=== PATIENT | female | born 1945 | race Caucasian/White ===

== ENCOUNTER 2018-07-13 15:37 | Inpatient (IN) | payer MEDICARE, OTHER ==
[2018-07-13] MEDS ORDERED: ROPIVACAINE 0.2% 20 ML VIAL (17:43)
[2018-07-13] MEDS ORDERED: PROPOFOL 20 ML (17:43)
[2018-07-13] MEDS ORDERED: MIDAZOLAM 1 MG/ML 2 ML INJ ×2 (17:43→18:12)
[2018-07-13] MEDS ORDERED: ROPIVACAINE 0.5 % 30 ML VIAL (17:43)
[2018-07-13] MEDS ORDERED: ONDANSETRON 4 MG INJ (17:43)
[2018-07-13] MEDS ORDERED: METOCLOPRAMIDE 10 MG INJ (17:44)
[2018-07-13] MEDS ORDERED: MEPERIDINE 25 MG INJ IV (18:00)
[2018-07-13] MEDS ORDERED: ONDANSETRON 4 MG INJ IV (18:00)
[2018-07-13] MEDS ORDERED: HYDROmorphONE 1 MG/5 ML IV SYRINGE IV ×3 (18:00)
[2018-07-13] MEDS ORDERED: DIPHENHYDRAMINE 50 MG INJ IV (18:00)
[2018-07-13] MEDS ORDERED: FENTAnyl 50 MCG/ML VIAL (18:27)
[2018-07-13] MEDS ORDERED: PIPER-TAZO 3.375 GM IV (PMX) 100 ML (18:36)
[2018-07-13] MEDS ORDERED: CEFAZOLIN 1 GM INJ (18:53)
[2018-07-13] MEDS ORDERED: CEFAZOLIN 1 GM INJ IV (19:00)
[2018-07-13] MEDS ORDERED: DIPHENHYDRAMINE 25 MG CAP PO (19:00)
[2018-07-13] MEDS ORDERED: KETOROLAC 30 MG INJ (20:24)
[2018-07-13] MEDS ORDERED: BACITRACIN/POLYMYXIN 28.35 GM OINT TOP (20:24)
[2018-07-13] MEDS ORDERED: FENTAnyl 50 MCG/ML VIAL IV ×6 (21:00→21:30)
[2018-07-13 21:35] LABS: HEMATOCRIT 36.1 % (37.0-47.0); HEMOGLOBIN 11.6 g/dl (12.0-16.0)
[2018-07-13] MEDS ORDERED: PIPER-TAZO 2.25 GM (PMX) 50 ML IVPB (22:00)
[2018-07-13] MEDS: GABAPENTIN 300 MG CAP PO (23:08)
[2018-07-13] MEDS: oxyCODONE (CR) 10 MG TAB [oxyCONTIN] PO (23:08)
[2018-07-14 05:25] LABS: ADD MAN DIFF? NO
[2018-07-14 05:27] LABS: WHITE BLOOD COUNT 8.9 10^3/ul (4.8-10.8)
[2018-07-14 05:27] LABS: BASOPHIL # 0.1 10^3/ul (0.0-0.1); BASOPHILS % 0.6 % (0.0-2.0); EOSINOPHILS # 0.1 10^3/ul (0.0-0.5); EOSINOPHILS % 1.2 % (0.0-7.0); HEMATOCRIT 35.8 % (37.0-47.0); HEMOGLOBIN 11.1 g/dl (12.0-16.0); LYMPHOCYTES # 1.2 10^3/ul (0.8-2.9); LYMPHOCYTES % 13.9 % (15.0-51.0); MEAN CORPUSCULAR HEMOGLOBIN 27.9 pg (29.0-33.0); MEAN CORPUSCULAR VOLUME 89.9 fl (82.0-101.0); MEAN PLATELET VOLUME 10.3 fl (7.4-10.4); MONOCYTE # 0.8 10^3/ul (0.3-0.9); MONOCYTES % 8.5 % (0.0-11.0); NEUTROPHIL # 6.7 10^3/ul (1.6-7.5); NEUTROPHILS % 75.5 % (39.0-77.0); PLATELET COUNT 220 10^3/UL (140-415); RED BLOOD COUNT 3.98 10^6/ul (4.20-5.40); RED CELL DISTRIBUTION WIDTH 14.5 % (11.5-14.5)
[2018-07-14 06:14] LABS: ANION GAP 9 (5-13); BLOOD UREA NITROGEN 16 mg/dl (7-20); CALCIUM 8.9 mg/dl (8.4-10.2); CARBON DIOXIDE 29 mmol/L (21-31); CHLORIDE 103 mmol/L (97-110); CREATININE 0.65 mg/dl (0.44-1.00); GLUCOSE 105 mg/dl (70-220); MAGNESIUM 2.2 mg/dl (1.7-2.5); PHOSPHORUS 5.3 mg/dl (2.5-4.9); POTASSIUM 4.6 mmol/L (3.5-5.1); SODIUM 141 mmol/L (135-144)
[2018-07-14] MEDS: LEVOTHYROXINE 125 MCG TAB PO (06:18)
[2018-07-14] MEDS: PIPER-TAZO 2.25 GM (PMX) 50 ML IVPB ×3 (06:18→21:37)
[2018-07-14] MEDS: PANTOPRAZOLE (EC) 40 MG TAB PO (06:18)
[2018-07-14] MEDS: MAGNESIUM OXIDE 400 MG TAB PO (08:41)
[2018-07-14] MEDS: CHOLECALCIFEROL 2,000 UNIT CAP PO (08:41)
[2018-07-14] MEDS: AMLODIPINE 10 MG TAB PO (08:41)
[2018-07-14] MEDS: FLUTICASONE/VILANTEROL 200-25 INH DEVICE INH (08:41)
[2018-07-14] MEDS: MULTIVITAMINS THERAPEUTIC TAB PO (08:42)
[2018-07-14] MEDS: LOSARTAN 25 MG TAB PO (08:42)
[2018-07-14] MEDS: PREGABALIN 75 MG CAP PO (08:42)
[2018-07-14] MEDS: oxyCODONE 5 MG TAB PO ×3 (08:42→21:03)
[2018-07-14] MEDS: GABAPENTIN 300 MG CAP PO ×3 (08:42→20:15)
[2018-07-14] MEDS: oxyCODONE (CR) 10 MG TAB [oxyCONTIN] PO ×2 (09:16→20:15)
[2018-07-14] MEDS: ONDANSETRON 4 MG INJ IV (11:51)
[2018-07-14] MEDS: RIVAROXABAN 10 MG TABLET PO (17:58)
[2018-07-14] MEDS: MONTELUKAST 10 MG TAB PO (20:15)
[2018-07-15] MEDS: oxyCODONE 5 MG TAB PO ×5 (00:36→22:51)
[2018-07-15 05:59] LABS: ADD MAN DIFF? NO
[2018-07-15 06:01] LABS: BASOPHILS % 0.3 % (0.0-2.0); EOSINOPHILS % 0.1 % (0.0-7.0); HEMATOCRIT 32.8 % (37.0-47.0); HEMOGLOBIN 10.9 g/dl (12.0-16.0); LYMPHOCYTES # 0.7 10^3/ul (0.8-2.9); LYMPHOCYTES % 4.7 % (15.0-51.0); MEAN CORPUSCULAR HEMOGLOBIN 28.5 pg (29.0-33.0); MEAN CORPUSCULAR HGB CONC 33.2 g/dl (32.0-37.0); MEAN CORPUSCULAR VOLUME 85.9 fl (82.0-101.0); MEAN PLATELET VOLUME 10.7 fl (7.4-10.4); MONOCYTE # 1.3 10^3/ul (0.3-0.9); NEUTROPHIL # 12.1 10^3/ul (1.6-7.5); NEUTROPHILS % 85.6 % (39.0-77.0); PLATELET COUNT 198 10^3/UL (140-415); RED BLOOD COUNT 3.82 10^6/ul (4.20-5.40); RED CELL DISTRIBUTION WIDTH 14.2 % (11.5-14.5)
[2018-07-15 06:01] LABS: WHITE BLOOD COUNT 14.2 10^3/ul (4.8-10.8)
[2018-07-15] MEDS: GABAPENTIN 300 MG CAP PO ×3 (06:13→20:39)
[2018-07-15] MEDS: PANTOPRAZOLE (EC) 40 MG TAB PO (06:14)
[2018-07-15] MEDS: LEVOTHYROXINE 125 MCG TAB PO (06:14)
[2018-07-15 06:25] LABS: ANION GAP 9 (5-13)
[2018-07-15 06:26] LABS: BLOOD UREA NITROGEN 11 mg/dl (7-20); CALCIUM 8.5 mg/dl (8.4-10.2); CARBON DIOXIDE 28 mmol/L (21-31); CHLORIDE 88 mmol/L (97-110); CREATININE 0.54 mg/dl (0.44-1.00); GLUCOSE 157 mg/dl (70-220); MAGNESIUM 1.9 mg/dl (1.7-2.5); PHOSPHORUS 3.8 mg/dl (2.5-4.9); POTASSIUM 4.3 mmol/L (3.5-5.1); SODIUM 125 mmol/L (135-144)
[2018-07-15] MEDS: ONDANSETRON 4 MG INJ IV (06:44)
[2018-07-15] MEDS: SOD CHLORIDE 0.9% 1,000 ML IV ×2 (09:17→22:20)
[2018-07-15] MEDS: MULTIVITAMINS THERAPEUTIC TAB PO (09:18)
[2018-07-15] MEDS: MAGNESIUM OXIDE 400 MG TAB PO (09:18)
[2018-07-15] MEDS: oxyCODONE (CR) 10 MG TAB [oxyCONTIN] PO ×2 (09:18→20:40)
[2018-07-15] MEDS: CHOLECALCIFEROL 2,000 UNIT CAP PO (09:18)
[2018-07-15] MEDS: LOSARTAN 25 MG TAB PO (09:19)
[2018-07-15] MEDS: AMLODIPINE 10 MG TAB PO (09:19)
[2018-07-15] MEDS: FLUTICASONE/VILANTEROL 200-25 INH DEVICE INH (11:00)
[2018-07-15 12:32] LABS: SODIUM,URINE RANDOM 192 mmol/L (30-90)
[2018-07-15] MEDS: RIVAROXABAN 10 MG TABLET PO (17:41)
[2018-07-15] MEDS: MONTELUKAST 10 MG TAB PO (20:39)
[2018-07-16] MEDS: LORAZEPAM 2 MG INJ IV (00:27)
[2018-07-16 05:44] LABS: ADD MAN DIFF? NO
[2018-07-16 05:54] LABS: WHITE BLOOD COUNT 11.5 10^3/ul (4.8-10.8)
[2018-07-16 05:54] LABS: BASOPHILS % 0.3 % (0.0-2.0); EOSINOPHILS # 0.1 10^3/ul (0.0-0.5); EOSINOPHILS % 0.5 % (0.0-7.0); HEMATOCRIT 32.3 % (37.0-47.0); LYMPHOCYTES # 0.8 10^3/ul (0.8-2.9); LYMPHOCYTES % 6.7 % (15.0-51.0); MEAN CORPUSCULAR HEMOGLOBIN 28.4 pg (29.0-33.0); MEAN CORPUSCULAR HGB CONC 34.1 g/dl (32.0-37.0); MEAN CORPUSCULAR VOLUME 83.2 fl (82.0-101.0); MEAN PLATELET VOLUME 10.9 fl (7.4-10.4); MONOCYTE # 1.3 10^3/ul (0.3-0.9); MONOCYTES % 11.4 % (0.0-11.0); NEUTROPHIL # 9.3 10^3/ul (1.6-7.5); NEUTROPHILS % 80.8 % (39.0-77.0); PLATELET COUNT 197 10^3/UL (140-415); RED BLOOD COUNT 3.88 10^6/ul (4.20-5.40); RED CELL DISTRIBUTION WIDTH 13.9 % (11.5-14.5)
[2018-07-16 06:21] LABS: ANION GAP 9 (5-13); BLOOD UREA NITROGEN 9 mg/dl (7-20); CALCIUM 8.7 mg/dl (8.4-10.2); CARBON DIOXIDE 31 mmol/L (21-31); CHLORIDE 85 mmol/L (97-110); CREATININE 0.52 mg/dl (0.44-1.00); GLUCOSE 104 mg/dl (70-220); MAGNESIUM 1.9 mg/dl (1.7-2.5); PHOSPHORUS 3.4 mg/dl (2.5-4.9); POTASSIUM 4.3 mmol/L (3.5-5.1); SODIUM 125 mmol/L (135-144)
[2018-07-16] MEDS: LEVOTHYROXINE 125 MCG TAB PO (06:28)
[2018-07-16] MEDS: PANTOPRAZOLE (EC) 40 MG TAB PO (06:28)
[2018-07-16] MEDS: CHOLECALCIFEROL 2,000 UNIT CAP PO (08:14)
[2018-07-16] MEDS: MAGNESIUM OXIDE 400 MG TAB PO (08:14)
[2018-07-16] MEDS: MULTIVITAMINS THERAPEUTIC TAB PO (08:14)
[2018-07-16] MEDS: GABAPENTIN 300 MG CAP PO ×3 (08:14→20:20)
[2018-07-16] MEDS: oxyCODONE (CR) 10 MG TAB [oxyCONTIN] PO ×2 (08:15→09:00)
[2018-07-16] MEDS: AMLODIPINE 10 MG TAB PO (08:16)
[2018-07-16] MEDS: LOSARTAN 25 MG TAB PO (08:16)
[2018-07-16] MEDS: FLUTICASONE/VILANTEROL 200-25 INH DEVICE INH (08:17)
[2018-07-16] MEDS ORDERED: NACL 3% 500 ML IV (09:00)
[2018-07-16] MEDS: NACL 3% 500 ML IV (10:39)
[2018-07-16] MEDS: LACTULOSE 30ML CUP PO (13:10)
[2018-07-16] MEDS: DOCUSATE SODIUM 100 MG CAP PO (13:10)
[2018-07-16] MEDS: oxyCODONE 5 MG TAB PO ×2 (15:39→23:32)
[2018-07-16 17:22] LABS: SODIUM 129 mmol/L (135-144)
[2018-07-16] MEDS: RIVAROXABAN 10 MG TABLET PO (17:44)
[2018-07-16] MEDS: MONTELUKAST 10 MG TAB PO (20:20)
[2018-07-17] MEDS: oxyCODONE 5 MG TAB PO ×3 (05:06→13:49)
[2018-07-17 05:39] LABS: ADD MAN DIFF? NO
[2018-07-17 05:47] LABS: WHITE BLOOD COUNT 11.3 10^3/ul (4.8-10.8)
[2018-07-17 05:47] LABS: BASOPHILS % 0.4 % (0.0-2.0); EOSINOPHILS # 0.1 10^3/ul (0.0-0.5); EOSINOPHILS % 0.8 % (0.0-7.0); HEMATOCRIT 34.3 % (37.0-47.0); LYMPHOCYTES # 0.8 10^3/ul (0.8-2.9); LYMPHOCYTES % 7.1 % (15.0-51.0); MEAN CORPUSCULAR HEMOGLOBIN 28.1 pg (29.0-33.0); MEAN CORPUSCULAR HGB CONC 32.1 g/dl (32.0-37.0); MEAN CORPUSCULAR VOLUME 87.5 fl (82.0-101.0); MEAN PLATELET VOLUME 11.9 fl (7.4-10.4); MONOCYTE # 1.3 10^3/ul (0.3-0.9); MONOCYTES % 11.5 % (0.0-11.0); NEUTROPHILS % 79.8 % (39.0-77.0); PLATELET COUNT 186 10^3/UL (140-415); RED BLOOD COUNT 3.92 10^6/ul (4.20-5.40); RED CELL DISTRIBUTION WIDTH 14.4 % (11.5-14.5)
[2018-07-17] MEDS: LEVOTHYROXINE 125 MCG TAB PO (06:05)
[2018-07-17] MEDS: PANTOPRAZOLE (EC) 40 MG TAB PO (06:05)
[2018-07-17 06:09] LABS: ANION GAP 8 (5-13); BLOOD UREA NITROGEN 14 mg/dl (7-20); CALCIUM 8.9 mg/dl (8.4-10.2); CARBON DIOXIDE 33 mmol/L (21-31); CHLORIDE 93 mmol/L (97-110); CREATININE 0.58 mg/dl (0.44-1.00); GLUCOSE 105 mg/dl (70-220); MAGNESIUM 2.3 mg/dl (1.7-2.5); PHOSPHORUS 3.6 mg/dl (2.5-4.9); POTASSIUM 4.3 mmol/L (3.5-5.1); SODIUM 134 mmol/L (135-144)
[2018-07-17] MEDS: DOCUSATE SODIUM 100 MG CAP PO (09:10)
[2018-07-17] MEDS: MULTIVITAMINS THERAPEUTIC TAB PO (09:11)
[2018-07-17] MEDS: GABAPENTIN 300 MG CAP PO ×3 (09:11→21:18)
[2018-07-17] MEDS: LOSARTAN 25 MG TAB PO (09:11)
[2018-07-17] MEDS: AMLODIPINE 10 MG TAB PO (09:11)
[2018-07-17] MEDS: FLUTICASONE/VILANTEROL 200-25 INH DEVICE INH (09:12)
[2018-07-17] MEDS: MAGNESIUM OXIDE 400 MG TAB PO (09:12)
[2018-07-17] MEDS: CHOLECALCIFEROL 2,000 UNIT CAP PO (09:18)
[2018-07-17] MEDS: RIVAROXABAN 10 MG TABLET PO (18:25)
[2018-07-17] MEDS: MONTELUKAST 10 MG TAB PO (21:18)
[2018-07-18] MEDS: HYDROCODONE/APAP (5/325) TAB PO ×3 (00:35→20:26)
[2018-07-18] MEDS: PANTOPRAZOLE (EC) 40 MG TAB PO (05:25)
[2018-07-18] MEDS: LEVOTHYROXINE 125 MCG TAB PO (07:01)
[2018-07-18] MEDS: MULTIVITAMINS THERAPEUTIC TAB PO (08:32)
[2018-07-18] MEDS: MAGNESIUM OXIDE 400 MG TAB PO (08:32)
[2018-07-18] MEDS: DOCUSATE SODIUM 100 MG CAP PO (08:32)
[2018-07-18] MEDS: CHOLECALCIFEROL 2,000 UNIT CAP PO (08:33)
[2018-07-18] MEDS: LOSARTAN 25 MG TAB PO (08:33)
[2018-07-18] MEDS: GABAPENTIN 300 MG CAP PO ×3 (08:33→20:26)
[2018-07-18] MEDS: AMLODIPINE 10 MG TAB PO (08:34)
[2018-07-18] MEDS: FLUTICASONE/VILANTEROL 200-25 INH DEVICE INH (08:34)
[2018-07-18] MEDS: NYSTATIN 30 GM POWDER BTL TOP ×2 (12:52→20:26)
[2018-07-18] MEDS: SENNA TAB PO (12:52)
[2018-07-18] MEDS: POLYETHYLENE GLYCOL 17 GM PACKET GTB (12:55)
[2018-07-18 12:57] LABS: ANION GAP 7 (5-13); BLOOD UREA NITROGEN 25 mg/dl (7-20); CALCIUM 9.1 mg/dl (8.4-10.2); CARBON DIOXIDE 35 mmol/L (21-31); CHLORIDE 93 mmol/L (97-110); CREATININE 0.58 mg/dl (0.44-1.00); GLUCOSE 103 mg/dl (70-220); POTASSIUM 4.6 mmol/L (3.5-5.1); SODIUM 135 mmol/L (135-144)
[2018-07-18] MEDS: RIVAROXABAN 10 MG TABLET PO (17:02)
[2018-07-18] MEDS: BISACODYL 10 MG SUPP PR (17:02)
[2018-07-18] MEDS: ASCORBIC ACID 500 MG TAB PO (18:08)
[2018-07-18] MEDS: MONTELUKAST 10 MG TAB PO (20:26)
[2018-07-19] MEDS: PANTOPRAZOLE (EC) 40 MG TAB PO (06:21)
[2018-07-19] MEDS: LEVOTHYROXINE 125 MCG TAB PO (06:21)
[2018-07-19 06:49] LABS: ANION GAP 7 (5-13); BLOOD UREA NITROGEN 29 mg/dl (7-20); CALCIUM 9.2 mg/dl (8.4-10.2); CARBON DIOXIDE 34 mmol/L (21-31); CHLORIDE 96 mmol/L (97-110); CREATININE 0.55 mg/dl (0.44-1.00); GLUCOSE 111 mg/dl (70-220); POTASSIUM 4.3 mmol/L (3.5-5.1); SODIUM 137 mmol/L (135-144)
[2018-07-19] MEDS: DOCUSATE SODIUM 100 MG CAP PO (08:50)
[2018-07-19] MEDS: POLYETHYLENE GLYCOL 17 GM PACKET GTB (08:50)
[2018-07-19] MEDS: FLUTICASONE/VILANTEROL 200-25 INH DEVICE INH (08:50)
[2018-07-19] MEDS: MULTIVITAMINS THERAPEUTIC TAB PO (08:51)
[2018-07-19] MEDS: LOSARTAN 25 MG TAB PO (08:51)
[2018-07-19] MEDS: SENNA TAB PO (08:51)
[2018-07-19] MEDS: GABAPENTIN 300 MG CAP PO ×3 (08:51→19:59)
[2018-07-19] MEDS: ASCORBIC ACID 500 MG TAB PO (08:51)
[2018-07-19] MEDS: MAGNESIUM OXIDE 400 MG TAB PO (08:51)
[2018-07-19] MEDS: AMLODIPINE 10 MG TAB PO (08:51)
[2018-07-19] MEDS: CHOLECALCIFEROL 2,000 UNIT CAP PO (08:52)
[2018-07-19] MEDS: NYSTATIN 30 GM POWDER BTL TOP ×2 (08:52→19:59)
[2018-07-19] MEDS: RIVAROXABAN 10 MG TABLET PO (17:54)
[2018-07-19] MEDS: HYDROCODONE/APAP (5/325) TAB PO (18:47)
[2018-07-19] MEDS: MONTELUKAST 10 MG TAB PO (19:59)
== END 2018-07-19 21:10 | DRG 240 ==
LOC: REC 15:37 → 6WM 21:50
PROC: 0Y6H0Z1 Detachment at Right Lower Leg, High, Open Approach (ICD-10-PCS; principal; 2018-07-13 17:30)
DX: I70.235 Atherosclerosis of native arteries of right leg with ulceration of other part of foot (principal); M86.671 Other chronic osteomyelitis, right ankle and foot; E22.2 Syndrome of inappropriate secretion of antidiuretic hormone; F05 Delirium due to known physiological condition; L97.519 Non-pressure chronic ulcer of other part of right foot with unspecified severity; E55.9 Vitamin D deficiency, unspecified; J44.9 Chronic obstructive pulmonary disease, unspecified; K21.9 Gastro-esophageal reflux disease without esophagitis; I10 Essential (primary) hypertension; I48.2 Chronic atrial fibrillation; E03.9 Hypothyroidism, unspecified; M14.671 Charcot's joint, right ankle and foot; K59.00 Constipation, unspecified; R40.0 Somnolence; G89.29 Other chronic pain; E78.00 Pure hypercholesterolemia, unspecified; Z98.1 Arthrodesis status; Z96.642 Presence of left artificial hip joint; Z90.49 Acquired absence of other specified parts of digestive tract; Z87.891 Personal history of nicotine dependence; Z79.82 Long term (current) use of aspirin
CPT/HCPCS: 80048; 82306; 83735; 84100; 84295; 84300; 84443; 85014; 85018; 85025; 87070; 87075; 87086; 87102; 87116; 88307; 88311; 97110; 97116; 97162; 97530

== ENCOUNTER 2018-07-19 21:15 | Inpatient (IN) | payer MEDICARE, OTHER ==
[2018-07-19] MEDS ORDERED: ONDANSETRON 4 MG INJ IV (23:18)
[2018-07-20] MEDS ORDERED: PENDING SANTYL ORDER FOR WOUND CARE XX (00:30)
[2018-07-20 00:51] LABS: ADD UMIC YES; UR ASCORBIC ACID 40 mg/dL (NEGATIVE); UR BACTERIA FEW /HPF (NONE SEEN); UR BILIRUBIN (Dip) NEGATIVE (NEGATIVE); UR BLOOD (Dip) NEGATIVE (NEGATIVE); UR CLARITY CLEAR (CLEAR); UR COLOR YELLOW (YELLOW); UR GLUCOSE (Dip) NEGATIVE (NEGATIVE); UR KETONES (Dip) NEGATIVE (NEGATIVE); UR LEUKOCYTE ESTERASE (Dip) 2+ Leu/ul (NEGATIVE); UR NITRITE (Dip) NEGATIVE (NEGATIVE); UR RBC 1 /HPF (0-5); UR SPECIFIC GRAVITY (Dip) 1.019 (1.003-1.030); UR SQUAMOUS EPITHELIAL CELL FEW /HPF (FEW); UR TOTAL PROTEIN (Dip) NEGATIVE (NEGATIVE); UR UROBILINOGEN (Dip) NEGATIVE (NEGATIVE); UR WBC 12 /HPF (0-5)
[2018-07-20] MEDS: PANTOPRAZOLE (EC) 40 MG TAB PO (06:09)
[2018-07-20] MEDS: LEVOTHYROXINE 125 MCG TAB PO (06:09)
[2018-07-20] MEDS: FLUTICASONE/VILANTEROL 200-25 INH DEVICE INH (08:12)
[2018-07-20] MEDS: POLYETHYLENE GLYCOL 17 GM PACKET GTB (08:12)
[2018-07-20] MEDS: NYSTATIN 30 GM POWDER BTL TOP ×2 (08:12→21:37)
[2018-07-20] MEDS: MAGNESIUM OXIDE 400 MG TAB PO (08:13)
[2018-07-20] MEDS: GABAPENTIN 300 MG CAP PO ×3 (08:13→20:37)
[2018-07-20] MEDS: ASCORBIC ACID 500 MG TAB PO (08:13)
[2018-07-20] MEDS: DOCUSATE SODIUM 100 MG CAP PO (08:13)
[2018-07-20] MEDS: MULTIVITAMINS THERAPEUTIC TAB PO (08:13)
[2018-07-20] MEDS: LOSARTAN 25 MG TAB PO (08:14)
[2018-07-20] MEDS: AMLODIPINE 10 MG TAB PO (08:15)
[2018-07-20] MEDS: CHOLECALCIFEROL 2,000 UNIT CAP PO (08:16)
[2018-07-20] MEDS: SENNA TAB PO (08:16)
[2018-07-20 08:57] LABS: ADD MAN DIFF? NO
[2018-07-20 09:05] LABS: BASOPHIL # 0.1 10^3/ul (0.0-0.1); BASOPHILS % 0.6 % (0.0-2.0); EOSINOPHILS # 0.4 10^3/ul (0.0-0.5); EOSINOPHILS % 3.4 % (0.0-7.0); HEMATOCRIT 36.1 % (37.0-47.0); HEMOGLOBIN 11.6 g/dl (12.0-16.0); LYMPHOCYTES # 1.2 10^3/ul (0.8-2.9); LYMPHOCYTES % 11.8 % (15.0-51.0); MEAN CORPUSCULAR HGB CONC 32.1 g/dl (32.0-37.0); MEAN CORPUSCULAR VOLUME 87.2 fl (82.0-101.0); MEAN PLATELET VOLUME 11.3 fl (7.4-10.4); MONOCYTE # 1.1 10^3/ul (0.3-0.9); MONOCYTES % 10.1 % (0.0-11.0); NEUTROPHIL # 7.7 10^3/ul (1.6-7.5); NEUTROPHILS % 73.6 % (39.0-77.0); PLATELET COUNT 249 10^3/UL (140-415); RED BLOOD COUNT 4.14 10^6/ul (4.20-5.40); RED CELL DISTRIBUTION WIDTH 14.5 % (11.5-14.5)
[2018-07-20 09:05] LABS: WHITE BLOOD COUNT 10.5 10^3/ul (4.8-10.8)
[2018-07-20 09:36] LABS: ALANINE AMINOTRANSFERASE 21 IU/L (13-69); ALBUMIN 3.9 g/dl (3.3-4.9); ALBUMIN/GLOBULIN RATIO 0.88; ALKALINE PHOSPHATASE 79 IU/L (42-121); ANION GAP 9 (5-13); ASPARTATE AMINO TRANSFERASE 52 IU/L (15-46); BILIRUBIN,INDIRECT 0.2 mg/dl (0-1.1); BILIRUBIN,TOTAL 0.2 mg/dl (0.2-1.3); BLOOD UREA NITROGEN 28 mg/dl (7-20); CALCIUM 9.1 mg/dl (8.4-10.2); CARBON DIOXIDE 31 mmol/L (21-31); CHLORIDE 95 mmol/L (97-110); CREATININE 0.57 mg/dl (0.44-1.00); GLUCOSE 96 mg/dl (70-220); POTASSIUM 5.1 mmol/L (3.5-5.1); SODIUM 135 mmol/L (135-144); TOTAL PROTEIN 8.3 g/dl (6.1-8.1)
[2018-07-20] MEDS: RIVAROXABAN 10 MG TABLET PO (17:48)
[2018-07-20] MEDS: HYDROCODONE/APAP (5/325) TAB PO ×2 (17:48→23:51)
[2018-07-20] MEDS: MONTELUKAST 10 MG TAB PO (20:36)
[2018-07-20] MEDS: BACLOFEN 10 MG TAB PO (20:37)
[2018-07-21] MEDS: DIPHENHYDRAMINE 25 MG CAP PO (01:27)
[2018-07-21] MEDS ORDERED: morphine 4 MG/ML VIAL IV (01:30)
[2018-07-21] MEDS: PANTOPRAZOLE (EC) 40 MG TAB PO (06:19)
[2018-07-21] MEDS: HYDROCODONE/APAP (5/325) TAB PO (06:19)
[2018-07-21] MEDS: LEVOTHYROXINE 125 MCG TAB PO (06:19)
[2018-07-21 07:16] LABS: ADD MAN DIFF? NO
[2018-07-21 07:19] LABS: BASOPHIL # 0.1 10^3/ul (0.0-0.1); BASOPHILS % 0.8 % (0.0-2.0); EOSINOPHILS # 0.4 10^3/ul (0.0-0.5); EOSINOPHILS % 4.1 % (0.0-7.0); HEMATOCRIT 37.5 % (37.0-47.0); HEMOGLOBIN 11.9 g/dl (12.0-16.0); LYMPHOCYTES # 1.6 10^3/ul (0.8-2.9); LYMPHOCYTES % 16.1 % (15.0-51.0); MEAN CORPUSCULAR HEMOGLOBIN 27.7 pg (29.0-33.0); MEAN CORPUSCULAR HGB CONC 31.7 g/dl (32.0-37.0); MEAN CORPUSCULAR VOLUME 87.4 fl (82.0-101.0); MEAN PLATELET VOLUME 10.1 fl (7.4-10.4); MONOCYTE # 0.9 10^3/ul (0.3-0.9); NEUTROPHIL # 6.8 10^3/ul (1.6-7.5); NEUTROPHILS % 69.7 % (39.0-77.0); PLATELET COUNT 301 10^3/UL (140-415); RED BLOOD COUNT 4.29 10^6/ul (4.20-5.40); RED CELL DISTRIBUTION WIDTH 14.6 % (11.5-14.5)
[2018-07-21 07:19] LABS: WHITE BLOOD COUNT 9.8 10^3/ul (4.8-10.8)
[2018-07-21 07:43] LABS: MAGNESIUM 2.3 mg/dl (1.7-2.5)
[2018-07-21 07:43] LABS: PHOSPHORUS 4.8 mg/dl (2.5-4.9)
[2018-07-21 07:45] LABS: ALANINE AMINOTRANSFERASE 26 IU/L (13-69); ALBUMIN 3.7 g/dl (3.3-4.9); ALBUMIN/GLOBULIN RATIO 0.97; ALKALINE PHOSPHATASE 102 IU/L (42-121); ANION GAP 9 (5-13); ASPARTATE AMINO TRANSFERASE 34 IU/L (15-46); BLOOD UREA NITROGEN 25 mg/dl (7-20); CALCIUM 9.2 mg/dl (8.4-10.2); CARBON DIOXIDE 29 mmol/L (21-31); CHLORIDE 100 mmol/L (97-110); CREATININE 0.68 mg/dl (0.44-1.00); GLUCOSE 103 mg/dl (70-220); POTASSIUM 4.3 mmol/L (3.5-5.1); SODIUM 138 mmol/L (135-144); TOTAL PROTEIN 7.5 g/dl (6.1-8.1)
[2018-07-21] MEDS: FLUTICASONE/VILANTEROL 200-25 INH DEVICE INH (08:37)
[2018-07-21] MEDS: NYSTATIN 30 GM POWDER BTL TOP ×2 (08:37→20:21)
[2018-07-21] MEDS: MAGNESIUM OXIDE 400 MG TAB PO (08:37)
[2018-07-21] MEDS: POLYETHYLENE GLYCOL 17 GM PACKET GTB (08:37)
[2018-07-21] MEDS: DOCUSATE SODIUM 100 MG CAP PO (08:38)
[2018-07-21] MEDS: GABAPENTIN 300 MG CAP PO ×3 (08:38→20:21)
[2018-07-21] MEDS: AMLODIPINE 10 MG TAB PO (08:38)
[2018-07-21] MEDS: LOSARTAN 25 MG TAB PO (08:38)
[2018-07-21] MEDS: SENNA TAB PO (08:38)
[2018-07-21] MEDS: MULTIVITAMINS THERAPEUTIC TAB PO (08:38)
[2018-07-21] MEDS: CHOLECALCIFEROL 2,000 UNIT CAP PO (08:38)
[2018-07-21] MEDS: ASCORBIC ACID 500 MG TAB PO (08:38)
[2018-07-21] MEDS: RIVAROXABAN 10 MG TABLET PO (17:30)
[2018-07-21] MEDS: BACLOFEN 10 MG TAB PO (20:21)
[2018-07-21] MEDS: MONTELUKAST 10 MG TAB PO (20:21)
[2018-07-21] MEDS: BISACODYL 10 MG SUPP PR (22:12)
[2018-07-21 23:43] LABS: ADD UMIC YES; UR ASCORBIC ACID 40 mg/dL (NEGATIVE); UR BACTERIA FEW /HPF (NONE SEEN); UR BILIRUBIN (Dip) NEGATIVE (NEGATIVE); UR BLOOD (Dip) NEGATIVE (NEGATIVE); UR CLARITY SLIGHTLY CLOUDY (CLEAR); UR COLOR YELLOW (YELLOW); UR GLUCOSE (Dip) NEGATIVE (NEGATIVE); UR KETONES (Dip) NEGATIVE (NEGATIVE); UR LEUKOCYTE ESTERASE (Dip) 2+ Leu/ul (NEGATIVE); UR NITRITE (Dip) NEGATIVE (NEGATIVE); UR RBC 2 /HPF (0-5); UR SPECIFIC GRAVITY (Dip) 1.014 (1.003-1.030); UR SQUAMOUS EPITHELIAL CELL FEW /HPF (FEW); UR TOTAL PROTEIN (Dip) NEGATIVE (NEGATIVE); UR UROBILINOGEN (Dip) NEGATIVE (NEGATIVE); UR WBC 16 /HPF (0-5)
[2018-07-22] MEDS: HYDROCODONE/APAP (5/325) TAB PO ×2 (00:46→10:20)
[2018-07-22] MEDS: LEVOTHYROXINE 125 MCG TAB PO (06:04)
[2018-07-22] MEDS: PANTOPRAZOLE (EC) 40 MG TAB PO (06:04)
[2018-07-22] MEDS: POLYETHYLENE GLYCOL 17 GM PACKET GTB (09:00)
[2018-07-22] MEDS: DOCUSATE SODIUM 100 MG CAP PO (09:00)
[2018-07-22] MEDS: NYSTATIN 30 GM POWDER BTL TOP ×2 (09:00→21:00)
[2018-07-22] MEDS: SENNA TAB PO (09:00)
[2018-07-22] MEDS: CHOLECALCIFEROL 2,000 UNIT CAP PO (10:18)
[2018-07-22] MEDS: ASCORBIC ACID 500 MG TAB PO (10:18)
[2018-07-22] MEDS: MULTIVITAMINS THERAPEUTIC TAB PO (10:19)
[2018-07-22] MEDS: GABAPENTIN 300 MG CAP PO ×3 (10:19→21:50)
[2018-07-22] MEDS: MAGNESIUM OXIDE 400 MG TAB PO (10:19)
[2018-07-22] MEDS: LOSARTAN 25 MG TAB PO (10:31)
[2018-07-22] MEDS: AMLODIPINE 5 MG TAB PO (10:32)
[2018-07-22] MEDS: FLUTICASONE/VILANTEROL 200-25 INH DEVICE INH (10:32)
[2018-07-22] MEDS: RIVAROXABAN 10 MG TABLET PO (18:42)
[2018-07-22] MEDS: BACLOFEN 10 MG TAB PO (21:50)
[2018-07-22] MEDS: MONTELUKAST 10 MG TAB PO (21:50)
[2018-07-23] MEDS: PANTOPRAZOLE (EC) 40 MG TAB PO (06:55)
[2018-07-23] MEDS: LEVOTHYROXINE 125 MCG TAB PO (06:55)
[2018-07-23] MEDS: NYSTATIN 30 GM POWDER BTL TOP ×2 (09:00→21:00)
[2018-07-23] MEDS: MAGNESIUM OXIDE 400 MG TAB PO (10:17)
[2018-07-23] MEDS: MULTIVITAMINS THERAPEUTIC TAB PO (10:17)
[2018-07-23] MEDS: GABAPENTIN 300 MG CAP PO ×3 (10:17→21:29)
[2018-07-23] MEDS: POLYETHYLENE GLYCOL 17 GM PACKET GTB (10:17)
[2018-07-23] MEDS: SENNA TAB PO (10:17)
[2018-07-23] MEDS: CHOLECALCIFEROL 2,000 UNIT CAP PO (10:17)
[2018-07-23] MEDS: DOCUSATE SODIUM 100 MG CAP PO (10:17)
[2018-07-23] MEDS: ASCORBIC ACID 500 MG TAB PO (10:17)
[2018-07-23] MEDS: AMLODIPINE 5 MG TAB PO (10:18)
[2018-07-23] MEDS: LOSARTAN 25 MG TAB PO (10:18)
[2018-07-23] MEDS: FLUTICASONE/VILANTEROL 200-25 INH DEVICE INH (10:25)
[2018-07-23] MEDS: ACETAMINOPHEN 325 MG TAB PO (14:49)
[2018-07-23] MEDS: RIVAROXABAN 10 MG TABLET PO (18:16)
[2018-07-23] MEDS: BACLOFEN 10 MG TAB PO (21:29)
[2018-07-23] MEDS: MONTELUKAST 10 MG TAB PO (21:29)
[2018-07-24 06:43] LABS: ADD MAN DIFF? NO
[2018-07-24 06:46] LABS: BASOPHIL # 0.1 10^3/ul (0.0-0.1); BASOPHILS % 0.9 % (0.0-2.0); EOSINOPHILS # 0.4 10^3/ul (0.0-0.5); EOSINOPHILS % 5.7 % (0.0-7.0); HEMATOCRIT 36.5 % (37.0-47.0); HEMOGLOBIN 11.6 g/dl (12.0-16.0); LYMPHOCYTES # 1.5 10^3/ul (0.8-2.9); LYMPHOCYTES % 19.2 % (15.0-51.0); MEAN CORPUSCULAR HEMOGLOBIN 27.8 pg (29.0-33.0); MEAN CORPUSCULAR HGB CONC 31.8 g/dl (32.0-37.0); MEAN CORPUSCULAR VOLUME 87.5 fl (82.0-101.0); MEAN PLATELET VOLUME 9.7 fl (7.4-10.4); MONOCYTE # 0.7 10^3/ul (0.3-0.9); MONOCYTES % 8.9 % (0.0-11.0); NEUTROPHILS % 64.8 % (39.0-77.0); PLATELET COUNT 340 10^3/UL (140-415); RED BLOOD COUNT 4.17 10^6/ul (4.20-5.40); RED CELL DISTRIBUTION WIDTH 14.7 % (11.5-14.5)
[2018-07-24 06:46] LABS: WHITE BLOOD COUNT 7.8 10^3/ul (4.8-10.8)
[2018-07-24] MEDS: PANTOPRAZOLE (EC) 40 MG TAB PO (06:47)
[2018-07-24] MEDS: LEVOTHYROXINE 125 MCG TAB PO (06:47)
[2018-07-24 07:04] LABS: ANION GAP 13 (5-13); BLOOD UREA NITROGEN 27 mg/dl (7-20); CALCIUM 9.4 mg/dl (8.4-10.2); CARBON DIOXIDE 30 mmol/L (21-31); CHLORIDE 101 mmol/L (97-110); CREATININE 0.69 mg/dl (0.44-1.00); GLUCOSE 114 mg/dl (70-220); MAGNESIUM 2.4 mg/dl (1.7-2.5); POTASSIUM 4.3 mmol/L (3.5-5.1); SODIUM 144 mmol/L (135-144)
[2018-07-24] MEDS: FLUTICASONE/VILANTEROL 200-25 INH DEVICE INH (08:32)
[2018-07-24] MEDS: GABAPENTIN 300 MG CAP PO ×3 (08:32→21:36)
[2018-07-24] MEDS: MULTIVITAMINS THERAPEUTIC TAB PO (08:33)
[2018-07-24] MEDS: MAGNESIUM OXIDE 400 MG TAB PO (08:33)
[2018-07-24] MEDS: CHOLECALCIFEROL 2,000 UNIT CAP PO (08:33)
[2018-07-24] MEDS: LOSARTAN 25 MG TAB PO (08:33)
[2018-07-24] MEDS: SENNA TAB PO (08:33)
[2018-07-24] MEDS: ASCORBIC ACID 500 MG TAB PO (08:33)
[2018-07-24] MEDS: AMLODIPINE 5 MG TAB PO (08:34)
[2018-07-24] MEDS: NYSTATIN 30 GM POWDER BTL TOP ×2 (08:35→21:00)
[2018-07-24] MEDS: POLYETHYLENE GLYCOL 17 GM PACKET GTB (08:36)
[2018-07-24] MEDS: DOCUSATE SODIUM 100 MG CAP PO (08:40)
[2018-07-24] MEDS ORDERED: morphine LIQ (10 MG/5 ML) CUP PO (15:30)
[2018-07-24] MEDS: RIVAROXABAN 10 MG TABLET PO (17:52)
[2018-07-24] MEDS: MONTELUKAST 10 MG TAB PO (21:36)
[2018-07-24] MEDS: BACLOFEN 10 MG TAB PO (21:36)
[2018-07-25] MEDS: LEVOTHYROXINE 125 MCG TAB PO (06:55)
[2018-07-25] MEDS: PANTOPRAZOLE (EC) 40 MG TAB PO (06:55)
[2018-07-25] MEDS: SENNA TAB PO (09:00)
[2018-07-25] MEDS: POLYETHYLENE GLYCOL 17 GM PACKET GTB (09:00)
[2018-07-25] MEDS: NYSTATIN 30 GM POWDER BTL TOP ×2 (09:00→20:42)
[2018-07-25] MEDS: GABAPENTIN 300 MG CAP PO ×3 (09:25→20:42)
[2018-07-25] MEDS: MULTIVITAMINS THERAPEUTIC TAB PO (09:25)
[2018-07-25] MEDS: MAGNESIUM OXIDE 400 MG TAB PO (09:25)
[2018-07-25] MEDS: DOCUSATE SODIUM 100 MG CAP PO (09:25)
[2018-07-25] MEDS: FLUTICASONE/VILANTEROL 200-25 INH DEVICE INH (09:25)
[2018-07-25] MEDS: ASCORBIC ACID 500 MG TAB PO (09:25)
[2018-07-25] MEDS: LOSARTAN 25 MG TAB PO (09:26)
[2018-07-25] MEDS: AMLODIPINE 5 MG TAB PO (09:26)
[2018-07-25] MEDS: CHOLECALCIFEROL 2,000 UNIT CAP PO (09:26)
[2018-07-25] MEDS: RIVAROXABAN 10 MG TABLET PO (17:33)
[2018-07-25] MEDS: BACLOFEN 10 MG TAB PO (20:42)
[2018-07-25] MEDS: MONTELUKAST 10 MG TAB PO (20:42)
[2018-07-26] MEDS: HYDROCODONE/APAP (5/325) TAB PO ×2 (00:13→16:08)
[2018-07-26] MEDS: DIPHENHYDRAMINE 25 MG CAP PO (00:13)
[2018-07-26] MEDS: PANTOPRAZOLE (EC) 40 MG TAB PO (06:43)
[2018-07-26] MEDS: LEVOTHYROXINE 125 MCG TAB PO (06:43)
[2018-07-26] MEDS: SENNA TAB PO (09:00)
[2018-07-26] MEDS: NYSTATIN 30 GM POWDER BTL TOP ×2 (09:00→21:43)
[2018-07-26] MEDS: POLYETHYLENE GLYCOL 17 GM PACKET GTB (09:00)
[2018-07-26] MEDS: MULTIVITAMINS THERAPEUTIC TAB PO (09:55)
[2018-07-26] MEDS: GABAPENTIN 300 MG CAP PO ×3 (09:55→21:43)
[2018-07-26] MEDS: ASCORBIC ACID 500 MG TAB PO (09:55)
[2018-07-26] MEDS: DOCUSATE SODIUM 100 MG CAP PO (09:55)
[2018-07-26] MEDS: MAGNESIUM OXIDE 400 MG TAB PO (09:55)
[2018-07-26] MEDS: LOSARTAN 25 MG TAB PO (09:56)
[2018-07-26] MEDS: AMLODIPINE 5 MG TAB PO (09:56)
[2018-07-26] MEDS: FLUTICASONE/VILANTEROL 200-25 INH DEVICE INH (09:57)
[2018-07-26] MEDS: CHOLECALCIFEROL 2,000 UNIT CAP PO (10:44)
[2018-07-26] MEDS: BACLOFEN 10 MG TAB PO ×2 (12:04→21:43)
[2018-07-26] MEDS: RIVAROXABAN 10 MG TABLET PO (17:49)
[2018-07-26] MEDS: MONTELUKAST 10 MG TAB PO (21:58)
[2018-07-27] MEDS: PANTOPRAZOLE (EC) 40 MG TAB PO (06:33)
[2018-07-27] MEDS: LEVOTHYROXINE 125 MCG TAB PO (06:33)
[2018-07-27] MEDS: AMLODIPINE 5 MG TAB PO (09:06)
[2018-07-27] MEDS: FLUTICASONE/VILANTEROL 200-25 INH DEVICE INH (09:06)
[2018-07-27] MEDS: ASCORBIC ACID 500 MG TAB PO (09:06)
[2018-07-27] MEDS: MAGNESIUM OXIDE 400 MG TAB PO (09:06)
[2018-07-27] MEDS: LOSARTAN 25 MG TAB PO (09:07)
[2018-07-27] MEDS: GABAPENTIN 300 MG CAP PO ×3 (09:07→22:14)
[2018-07-27] MEDS: CHOLECALCIFEROL 2,000 UNIT CAP PO (09:07)
[2018-07-27] MEDS: SENNA TAB PO (09:07)
[2018-07-27] MEDS: TRIMETHOPRIM/SULFAMETHOX (DS) TAB PO ×2 (09:07→22:14)
[2018-07-27] MEDS: DOCUSATE SODIUM 100 MG CAP PO (09:07)
[2018-07-27] MEDS: MULTIVITAMINS THERAPEUTIC TAB PO (09:07)
[2018-07-27] MEDS: POLYETHYLENE GLYCOL 17 GM PACKET GTB (09:08)
[2018-07-27] MEDS: NYSTATIN 30 GM POWDER BTL TOP ×2 (09:08→22:00)
[2018-07-27] MEDS: BACLOFEN 10 MG TAB PO ×2 (10:07→22:15)
[2018-07-27] MEDS: RIVAROXABAN 10 MG TABLET PO (18:02)
[2018-07-27] MEDS: MONTELUKAST 10 MG TAB PO (22:14)
[2018-07-28] MEDS: HYDROCODONE/APAP (5/325) TAB PO (00:36)
[2018-07-28] MEDS: PANTOPRAZOLE (EC) 40 MG TAB PO (06:52)
[2018-07-28] MEDS: LEVOTHYROXINE 125 MCG TAB PO (06:52)
[2018-07-28 08:11] LABS: BLOOD UREA NITROGEN 34 mg/dl (7-20)
[2018-07-28 08:11] LABS: CREATININE 0.69 mg/dl (0.44-1.00)
[2018-07-28] MEDS: FLUTICASONE/VILANTEROL 200-25 INH DEVICE INH (09:43)
[2018-07-28] MEDS: POLYETHYLENE GLYCOL 17 GM PACKET GTB (09:43)
[2018-07-28] MEDS: MAGNESIUM OXIDE 400 MG TAB PO (09:43)
[2018-07-28] MEDS: CHOLECALCIFEROL 2,000 UNIT CAP PO (09:44)
[2018-07-28] MEDS: DOCUSATE SODIUM 100 MG CAP PO (09:44)
[2018-07-28] MEDS: GABAPENTIN 300 MG CAP PO ×3 (09:44→20:28)
[2018-07-28] MEDS: MULTIVITAMINS THERAPEUTIC TAB PO (09:44)
[2018-07-28] MEDS: LOSARTAN 25 MG TAB PO (09:44)
[2018-07-28] MEDS: SENNA TAB PO (09:44)
[2018-07-28] MEDS: ASCORBIC ACID 500 MG TAB PO (09:44)
[2018-07-28] MEDS: TRIMETHOPRIM/SULFAMETHOX (DS) TAB PO ×2 (09:45→20:28)
[2018-07-28] MEDS: NYSTATIN 30 GM POWDER BTL TOP ×2 (09:45→21:00)
[2018-07-28 10:28] LABS: ANION GAP 16 (5-13); BLOOD UREA NITROGEN 31 mg/dl (7-20); CALCIUM 9.9 mg/dl (8.4-10.2); CARBON DIOXIDE 26 mmol/L (21-31); CHLORIDE 102 mmol/L (97-110); CREATININE 0.74 mg/dl (0.44-1.00); GLUCOSE 99 mg/dl (70-220); POTASSIUM 4.3 mmol/L (3.5-5.1); SODIUM 144 mmol/L (135-144)
[2018-07-28] MEDS: AMLODIPINE 2.5 MG TAB PO (12:27)
[2018-07-28] MEDS: RIVAROXABAN 10 MG TABLET PO (17:30)
[2018-07-28] MEDS: MONTELUKAST 10 MG TAB PO (20:28)
[2018-07-28] MEDS: BACLOFEN 10 MG TAB PO (20:30)
[2018-07-29] MEDS: LEVOTHYROXINE 125 MCG TAB PO (06:23)
[2018-07-29] MEDS: PANTOPRAZOLE (EC) 40 MG TAB PO (06:23)
[2018-07-29] MEDS: LOSARTAN 25 MG TAB PO (09:00)
[2018-07-29] MEDS: POLYETHYLENE GLYCOL 17 GM PACKET GTB (09:00)
[2018-07-29] MEDS: NYSTATIN 30 GM POWDER BTL TOP ×2 (09:00→21:00)
[2018-07-29] MEDS: DOCUSATE SODIUM 100 MG CAP PO (09:00)
[2018-07-29] MEDS: SENNA TAB PO (09:00)
[2018-07-29] MEDS: CHOLECALCIFEROL 2,000 UNIT CAP PO (10:50)
[2018-07-29] MEDS: FLUTICASONE/VILANTEROL 200-25 INH DEVICE INH (10:50)
[2018-07-29] MEDS: MAGNESIUM OXIDE 400 MG TAB PO (10:51)
[2018-07-29] MEDS: MULTIVITAMINS THERAPEUTIC TAB PO (10:51)
[2018-07-29] MEDS: GABAPENTIN 300 MG CAP PO ×3 (10:51→20:39)
[2018-07-29] MEDS: AMLODIPINE 2.5 MG TAB PO (10:52)
[2018-07-29] MEDS: ASCORBIC ACID 500 MG TAB PO (10:53)
[2018-07-29] MEDS: TRIMETHOPRIM/SULFAMETHOX (DS) TAB PO ×2 (11:19→20:39)
[2018-07-29] MEDS: RIVAROXABAN 10 MG TABLET PO (19:12)
[2018-07-29] MEDS: MONTELUKAST 10 MG TAB PO (20:39)
[2018-07-29] MEDS: BACLOFEN 10 MG TAB PO (20:40)
[2018-07-30 00:03] LABS: ADD UMIC NO; UR ASCORBIC ACID 40 mg/dL (NEGATIVE); UR BILIRUBIN (Dip) NEGATIVE (NEGATIVE); UR BLOOD (Dip) NEGATIVE (NEGATIVE); UR CLARITY SLIGHTLY CLOUDY (CLEAR); UR COLOR YELLOW (YELLOW); UR GLUCOSE (Dip) NEGATIVE (NEGATIVE); UR KETONES (Dip) NEGATIVE (NEGATIVE); UR LEUKOCYTE ESTERASE (Dip) NEGATIVE Leu/ul (NEGATIVE); UR NITRITE (Dip) NEGATIVE (NEGATIVE); UR RBC 0 /HPF (0-5); UR SQUAMOUS EPITHELIAL CELL FEW /HPF (FEW); UR TOTAL PROTEIN (Dip) NEGATIVE (NEGATIVE); UR UROBILINOGEN (Dip) NEGATIVE (NEGATIVE); UR WBC 1 /HPF (0-5)
[2018-07-30] MEDS: LEVOTHYROXINE 125 MCG TAB PO (06:50)
[2018-07-30] MEDS: PANTOPRAZOLE (EC) 40 MG TAB PO (06:50)
[2018-07-30] MEDS ORDERED: DOCUSATE SODIUM 100 MG CAP PO (08:00)
[2018-07-30] MEDS: LOSARTAN 25 MG TAB PO (09:12)
[2018-07-30] MEDS: TRIMETHOPRIM/SULFAMETHOX (DS) TAB PO ×2 (09:12→20:33)
[2018-07-30] MEDS: FLUTICASONE/VILANTEROL 200-25 INH DEVICE INH (09:12)
[2018-07-30] MEDS: CEPASTAT LOZENGE MT (09:13)
[2018-07-30] MEDS: AMLODIPINE 2.5 MG TAB PO (09:13)
[2018-07-30] MEDS: ASCORBIC ACID 500 MG TAB PO (09:13)
[2018-07-30] MEDS: MAGNESIUM OXIDE 400 MG TAB PO (09:13)
[2018-07-30] MEDS: NYSTATIN 30 GM POWDER BTL TOP ×2 (09:13→20:33)
[2018-07-30] MEDS: MULTIVITAMINS THERAPEUTIC TAB PO (09:13)
[2018-07-30] MEDS: CHOLECALCIFEROL 2,000 UNIT CAP PO (09:13)
[2018-07-30] MEDS: GABAPENTIN 300 MG CAP PO ×3 (09:13→20:33)
[2018-07-30] MEDS ORDERED: SENNA TAB PO (09:30)
[2018-07-30] MEDS ORDERED: POLYETHYLENE GLYCOL 17 GM PACKET GTB (09:30)
[2018-07-30] MEDS: RIVAROXABAN 10 MG TABLET PO (17:41)
[2018-07-30] MEDS: MONTELUKAST 10 MG TAB PO (20:33)
[2018-07-31] MEDS: HYDROCODONE/APAP (5/325) TAB PO (04:40)
[2018-07-31] MEDS: PANTOPRAZOLE (EC) 40 MG TAB PO (06:37)
[2018-07-31] MEDS: LEVOTHYROXINE 125 MCG TAB PO (06:37)
[2018-07-31] MEDS: FLUTICASONE/VILANTEROL 200-25 INH DEVICE INH (08:54)
[2018-07-31] MEDS: CEPASTAT LOZENGE MT (08:54)
[2018-07-31] MEDS: MAGNESIUM OXIDE 400 MG TAB PO (08:54)
[2018-07-31] MEDS: CHOLECALCIFEROL 2,000 UNIT CAP PO (08:54)
[2018-07-31] MEDS: LOSARTAN 25 MG TAB PO (08:55)
[2018-07-31] MEDS: ASCORBIC ACID 500 MG TAB PO (08:55)
[2018-07-31] MEDS: GABAPENTIN 300 MG CAP PO ×3 (08:55→20:34)
[2018-07-31] MEDS: MULTIVITAMINS THERAPEUTIC TAB PO (08:55)
[2018-07-31] MEDS: ACETAMINOPHEN 325 MG TAB PO (08:55)
[2018-07-31] MEDS: AMLODIPINE 2.5 MG TAB PO (08:56)
[2018-07-31] MEDS: NYSTATIN 30 GM POWDER BTL TOP ×2 (08:57→20:33)
[2018-07-31] MEDS: RIVAROXABAN 10 MG TABLET PO (17:48)
[2018-07-31] MEDS: MONTELUKAST 10 MG TAB PO (20:34)
[2018-08-01] MEDS: LEVOTHYROXINE 125 MCG TAB PO (06:06)
[2018-08-01] MEDS: PANTOPRAZOLE (EC) 40 MG TAB PO (06:06)
[2018-08-01] MEDS: FLUTICASONE/VILANTEROL 200-25 INH DEVICE INH (08:44)
[2018-08-01] MEDS: GABAPENTIN 300 MG CAP PO ×3 (08:44→20:46)
[2018-08-01] MEDS: ASCORBIC ACID 500 MG TAB PO (08:45)
[2018-08-01] MEDS: MULTIVITAMINS THERAPEUTIC TAB PO (08:45)
[2018-08-01] MEDS: LOSARTAN 25 MG TAB PO (08:45)
[2018-08-01] MEDS: CHOLECALCIFEROL 2,000 UNIT CAP PO (08:45)
[2018-08-01] MEDS: MAGNESIUM OXIDE 400 MG TAB PO (08:45)
[2018-08-01] MEDS: HYDROCODONE/APAP (5/325) TAB PO (08:47)
[2018-08-01] MEDS: AMLODIPINE 2.5 MG TAB PO (08:48)
[2018-08-01] MEDS: NYSTATIN 30 GM POWDER BTL TOP ×2 (09:00→20:46)
[2018-08-01] MEDS: RIVAROXABAN 10 MG TABLET PO (17:51)
[2018-08-01] MEDS: MONTELUKAST 10 MG TAB PO (20:46)
[2018-08-01] MEDS: BACLOFEN 10 MG TAB PO (22:06)
[2018-08-02] MEDS: PANTOPRAZOLE (EC) 40 MG TAB PO (06:46)
[2018-08-02] MEDS: LEVOTHYROXINE 125 MCG TAB PO (06:46)
[2018-08-02] MEDS: ASCORBIC ACID 500 MG TAB PO (08:40)
[2018-08-02] MEDS: MAGNESIUM OXIDE 400 MG TAB PO (08:40)
[2018-08-02] MEDS: CEPASTAT LOZENGE MT (08:40)
[2018-08-02] MEDS: MULTIVITAMINS THERAPEUTIC TAB PO (08:40)
[2018-08-02] MEDS: ACETAMINOPHEN 325 MG TAB PO (08:40)
[2018-08-02] MEDS: CHOLECALCIFEROL 2,000 UNIT CAP PO (08:40)
[2018-08-02] MEDS: FLUTICASONE/VILANTEROL 200-25 INH DEVICE INH (08:40)
[2018-08-02] MEDS: GABAPENTIN 300 MG CAP PO ×3 (08:41→20:21)
[2018-08-02] MEDS: LOSARTAN 25 MG TAB PO (08:41)
[2018-08-02] MEDS: AMLODIPINE 2.5 MG TAB PO (08:41)
[2018-08-02] MEDS: NYSTATIN 30 GM POWDER BTL TOP ×2 (08:45→20:21)
[2018-08-02] MEDS: RIVAROXABAN 10 MG TABLET PO (17:49)
[2018-08-02] MEDS: MONTELUKAST 10 MG TAB PO (20:21)
[2018-08-03] MEDS: PANTOPRAZOLE (EC) 40 MG TAB PO (06:41)
[2018-08-03] MEDS: LEVOTHYROXINE 125 MCG TAB PO (06:41)
[2018-08-03 07:13] LABS: ADD MAN DIFF? NO
[2018-08-03 07:20] LABS: BASOPHIL # 0.1 10^3/ul (0.0-0.1); BASOPHILS % 1.2 % (0.0-2.0); EOSINOPHILS # 0.3 10^3/ul (0.0-0.5); EOSINOPHILS % 4.5 % (0.0-7.0); HEMATOCRIT 38.5 % (37.0-47.0); LYMPHOCYTES # 1.6 10^3/ul (0.8-2.9); LYMPHOCYTES % 24.5 % (15.0-51.0); MEAN CORPUSCULAR HEMOGLOBIN 28.1 pg (29.0-33.0); MEAN CORPUSCULAR HGB CONC 31.2 g/dl (32.0-37.0); MEAN CORPUSCULAR VOLUME 90.2 fl (82.0-101.0); MEAN PLATELET VOLUME 11.1 fl (7.4-10.4); MONOCYTE # 0.5 10^3/ul (0.3-0.9); MONOCYTES % 7.6 % (0.0-11.0); NEUTROPHIL # 4.2 10^3/ul (1.6-7.5); NEUTROPHILS % 61.9 % (39.0-77.0); PLATELET COUNT 231 10^3/UL (140-415); RED BLOOD COUNT 4.27 10^6/ul (4.20-5.40); RED CELL DISTRIBUTION WIDTH 15.5 % (11.5-14.5)
[2018-08-03 07:20] LABS: WHITE BLOOD COUNT 6.7 10^3/ul (4.8-10.8)
[2018-08-03 07:43] LABS: ANION GAP 5 (5-13); BLOOD UREA NITROGEN 21 mg/dl (7-20); CALCIUM 9.6 mg/dl (8.4-10.2); CARBON DIOXIDE 26 mmol/L (21-31); CHLORIDE 111 mmol/L (97-110); CREATININE 0.59 mg/dl (0.44-1.00); GLUCOSE 95 mg/dl (70-220); POTASSIUM 5.3 mmol/L (3.5-5.1); SODIUM 142 mmol/L (135-144)
[2018-08-03] MEDS: GABAPENTIN 300 MG CAP PO ×3 (09:38→20:20)
[2018-08-03] MEDS: ASCORBIC ACID 500 MG TAB PO (09:38)
[2018-08-03] MEDS: CEPASTAT LOZENGE MT (09:38)
[2018-08-03] MEDS: MAGNESIUM OXIDE 400 MG TAB PO (09:38)
[2018-08-03] MEDS: CHOLECALCIFEROL 2,000 UNIT CAP PO (09:39)
[2018-08-03] MEDS: MULTIVITAMINS THERAPEUTIC TAB PO (09:39)
[2018-08-03] MEDS: FLUTICASONE/VILANTEROL 200-25 INH DEVICE INH (09:39)
[2018-08-03] MEDS: AMLODIPINE 2.5 MG TAB PO ×2 (09:39→20:21)
[2018-08-03] MEDS: LOSARTAN 25 MG TAB PO (09:39)
[2018-08-03] MEDS: NYSTATIN 30 GM POWDER BTL TOP ×2 (09:41→20:22)
[2018-08-03 11:40] LABS: POTASSIUM 5.4 mmol/L (3.5-5.1)
[2018-08-03] MEDS: RIVAROXABAN 10 MG TABLET PO (18:13)
[2018-08-03] MEDS: MONTELUKAST 10 MG TAB PO (20:20)
[2018-08-04] MEDS: BACLOFEN 10 MG TAB PO (01:13)
[2018-08-04] MEDS: LEVOTHYROXINE 125 MCG TAB PO (06:17)
[2018-08-04] MEDS: PANTOPRAZOLE (EC) 40 MG TAB PO (06:17)
[2018-08-04 07:21] LABS: ANION GAP 9 (5-13); BLOOD UREA NITROGEN 25 mg/dl (7-20); CALCIUM 9.8 mg/dl (8.4-10.2); CARBON DIOXIDE 25 mmol/L (21-31); CHLORIDE 107 mmol/L (97-110); CREATININE 0.57 mg/dl (0.44-1.00); GLUCOSE 105 mg/dl (70-220); POTASSIUM 4.4 mmol/L (3.5-5.1); SODIUM 141 mmol/L (135-144)
[2018-08-04] MEDS: FLUTICASONE/VILANTEROL 200-25 INH DEVICE INH (09:07)
[2018-08-04] MEDS: CEPASTAT LOZENGE MT (09:08)
[2018-08-04] MEDS: MULTIVITAMINS THERAPEUTIC TAB PO (09:08)
[2018-08-04] MEDS: GABAPENTIN 300 MG CAP PO ×3 (09:09→21:42)
[2018-08-04] MEDS: ASCORBIC ACID 500 MG TAB PO (09:09)
[2018-08-04] MEDS: AMLODIPINE 2.5 MG TAB PO ×2 (09:09→21:51)
[2018-08-04] MEDS: MAGNESIUM OXIDE 400 MG TAB PO (09:10)
[2018-08-04] MEDS: NYSTATIN 30 GM POWDER BTL TOP ×2 (09:10→21:00)
[2018-08-04] MEDS: CHOLECALCIFEROL 2,000 UNIT CAP PO (09:10)
[2018-08-04] MEDS: RIVAROXABAN 10 MG TABLET PO (17:39)
[2018-08-04] MEDS: MONTELUKAST 10 MG TAB PO (21:42)
[2018-08-05] MEDS: PANTOPRAZOLE (EC) 40 MG TAB PO (06:44)
[2018-08-05] MEDS: LEVOTHYROXINE 125 MCG TAB PO (06:44)
[2018-08-05] MEDS: NYSTATIN 30 GM POWDER BTL TOP ×2 (09:00→21:00)
[2018-08-05] MEDS: CHOLECALCIFEROL 2,000 UNIT CAP PO (09:08)
[2018-08-05] MEDS: MAGNESIUM OXIDE 400 MG TAB PO (09:08)
[2018-08-05] MEDS: GABAPENTIN 300 MG CAP PO ×3 (09:08→21:06)
[2018-08-05] MEDS: AMLODIPINE 2.5 MG TAB PO ×2 (09:08→21:08)
[2018-08-05] MEDS: MULTIVITAMINS THERAPEUTIC TAB PO (09:09)
[2018-08-05] MEDS: ASCORBIC ACID 500 MG TAB PO (09:09)
[2018-08-05] MEDS: FLUTICASONE/VILANTEROL 200-25 INH DEVICE INH (09:12)
[2018-08-05] MEDS: RIVAROXABAN 10 MG TABLET PO (18:29)
[2018-08-05] MEDS: MONTELUKAST 10 MG TAB PO (21:07)
[2018-08-05] MEDS: BACLOFEN 10 MG TAB PO (22:59)
[2018-08-06] MEDS: PANTOPRAZOLE (EC) 40 MG TAB PO (06:29)
[2018-08-06] MEDS: LEVOTHYROXINE 125 MCG TAB PO (06:29)
[2018-08-06] MEDS: HYDROCODONE/APAP (5/325) TAB PO ×2 (08:50→23:07)
[2018-08-06] MEDS: FLUTICASONE/VILANTEROL 200-25 INH DEVICE INH (08:50)
[2018-08-06] MEDS: MULTIVITAMINS THERAPEUTIC TAB PO (08:51)
[2018-08-06] MEDS: GABAPENTIN 300 MG CAP PO ×3 (08:51→20:29)
[2018-08-06] MEDS: ASCORBIC ACID 500 MG TAB PO (08:51)
[2018-08-06] MEDS: CHOLECALCIFEROL 2,000 UNIT CAP PO (08:51)
[2018-08-06] MEDS: MAGNESIUM OXIDE 400 MG TAB PO (08:51)
[2018-08-06] MEDS: AMLODIPINE 2.5 MG TAB PO ×2 (08:51→20:31)
[2018-08-06] MEDS: NYSTATIN 30 GM POWDER BTL TOP ×2 (08:52→21:00)
[2018-08-06] MEDS: RIVAROXABAN 10 MG TABLET PO (17:40)
[2018-08-06] MEDS: MONTELUKAST 10 MG TAB PO (20:29)
[2018-08-06] MEDS: BACLOFEN 10 MG TAB PO (21:43)
[2018-08-07] MEDS: PANTOPRAZOLE (EC) 40 MG TAB PO (06:22)
[2018-08-07] MEDS: LEVOTHYROXINE 125 MCG TAB PO (06:22)
[2018-08-07] MEDS: NYSTATIN 30 GM POWDER BTL TOP (09:00)
[2018-08-07] MEDS: FLUTICASONE/VILANTEROL 200-25 INH DEVICE INH (09:07)
[2018-08-07] MEDS: MAGNESIUM OXIDE 400 MG TAB PO (09:08)
[2018-08-07] MEDS: CHOLECALCIFEROL 2,000 UNIT CAP PO (09:08)
[2018-08-07] MEDS: AMLODIPINE 2.5 MG TAB PO (09:08)
[2018-08-07] MEDS: GABAPENTIN 300 MG CAP PO (09:08)
[2018-08-07] MEDS: ASCORBIC ACID 500 MG TAB PO (09:09)
[2018-08-07] MEDS: MULTIVITAMINS THERAPEUTIC TAB PO (09:09)
== END 2018-08-07 11:08 | disposition home health service (06) | DRG 561 ==
LOC: VRC 07-24 11:18
PROC: F07Z5ZZ Bed Mobility Treatment (ICD-10-PCS; principal; 2018-07-20)
PROC: F07Z4ZZ Wheelchair Mobility Treatment (ICD-10-PCS; 2018-07-20)
PROC: F08Z2ZZ Grooming/Personal Hygiene Treatment (ICD-10-PCS; 2018-07-20)
PROC: F08Z1ZZ Dressing Techniques Treatment (ICD-10-PCS; 2018-07-20)
PROC: F08Z0ZZ Bathing/Showering Techniques Treatment (ICD-10-PCS; 2018-07-20)
DX: Z47.81 Encounter for orthopedic aftercare following surgical amputation (principal); J44.9 Chronic obstructive pulmonary disease, unspecified; R41.0 Disorientation, unspecified; G47.30 Sleep apnea, unspecified; I48.2 Chronic atrial fibrillation; K21.9 Gastro-esophageal reflux disease without esophagitis; G62.9 Polyneuropathy, unspecified; E03.9 Hypothyroidism, unspecified; F06.31 Mood disorder due to known physiological condition with depressive features; R82.71 Bacteriuria; Z89.511 Acquired absence of right leg below knee; I70.202 Unspecified atherosclerosis of native arteries of extremities, left leg
CPT/HCPCS: 80048; 80053; 81001; 81003; 82565; 83735; 84100; 84132; 84520; 85025; 87081; 87086; 92610; 97110; 97112; 97116; 97163; 97166; 97530; 97535; 97542